=== PATIENT | male | born 1950 | race Caucasian/White ===

== ENCOUNTER 2020-11-04 08:00 | Outpatient (RCR) | payer SELFPAY ==
[2020-11-03 13:03] VITALS: BP 140/87; PULSE 118; RESP 16; TEMP 37.1
--- NOTE | 2020-11-03 14:43 | RAD_ITS ---
STUDY: X-RAY - LEFT FOOT CLINICAL: Male, 70 years old. INFECTION. Prior amputation. TECHNIQUE: 3 view(s) of the foot. COMPARISON: None. FINDINGS: Normal talus, calcaneus, and tarsal bones. Normal visualized subtalar, talonavicular, calcaneocuboid, tarsal and tarsometatarsal articulations. The patient is status post transmetatarsal amputation. Normal metatarsophalangeal joint of the great toe. Normal tibial and fibular sesamoid bones. Normal interphalangeal joint of the great toe. Normal phalanges of the great toe. Normal second through fifth metatarsophalangeal joints. Normal interphalangeal joints and phalanges of the lesser toes. Diffuse soft tissue swelling. Gas is seen within the medial soft tissues. Vascular calcification. RAD/Foot min 3 Views IMPRESSION: Status post transmetatarsal amputation. Overlying soft tissue swelling. Small amount of gas is seen within the soft tissues in keeping with infection. Vascular calcification. Electronically Signed: Adrian Rucker MD at 15:38 EDT , Service support ,
[2020-11-03 15:20] LABS: Absolute Neutrophil Count 6.1 X10^3/uL (2.0-7.7); Basophil# 0.06 X10^3/uL; Basophil% 0.6 % (0-1); Eosinophil# 0.18 X10^3/uL; Eosinophils% 1.9 % (0-5); Hematocrit 41.2 % (40-54); Hemoglobin 12.5 g/dL (13.0-16.5); Lymphocyte % 23.6 % (19-41); Mean Corp Hgb Conc 30.3 g/dL (32-36); Mean Corpuscular Hgb 25.9 pg (27.0-32.0); Mean Corpuscular Volume 85.5 fL (80-94); Mean Platelet Vol. 9.4 fl (6.2-12.0); Monocyte# 0.67 X10^3/uL; Monocyte% 7.2 % (0-10); NRBC Flagged by Analyzer 0 % (0-5); Neutrophil # 6.13 X10^3/uL (2.7-7.7); Neutrophil % 65.9 % (47-70); Platelet Count 611 K/mm3 (150-450); RBC Distribution Width CV 13.2 % (11.6-14.6); RBC Distribution Width SD 41.1 fl (35.1-43.9); Red Blood Count 4.82 M/mm3 (4.6-6.2); White Blood Count 9.3 K/mm3 (4.4-11.0)
[2020-11-03 15:41] LABS: Erythrocyte Sedimentation Rate 30 mm/hr (0-20)
[2020-11-03 16:00] LABS: ALB/GLOB Ratio 0.5 RATIO (0.9-2.4); AST(SGOT) 14 U/L (15-37); Alanine Aminotransfer ALT/SGPT 26 U/L (16-61); Albumin, Serum 2.9 g/dL (3.2-5.0); Alkaline Phosphatase 122 U/L (45-117); Anion Gap 6 (5-15); BUN 13 mg/dL (7-18); BUN/Creat Ratio 19.2 RATIO (10-20); Calcium,Total 9.4 mg/dL (8.5-10.1); Chloride 97 mmol/L (98-107); Creatinine, Serum 0.68 mg/dL (0.70-1.30); EST Glomerular Filtration Rate 123 mL/min (>60); Est Glom Filt Rate - Afr Amer 149 mL/min (>60); Globulin 5.6 g/dL (2.2-4.2); Glucose 174 mg/dL (74-106); Potassium 4.2 mmol/L (3.5-5.1); Protein, Total 8.5 g/dL (6.4-8.2); Sodium Level 133 mmol/L (136-145)
--- NOTE | 2020-11-03 16:04 | PCM.WC.HP ---
History of Present Illness Date of Service: 11/03/20 Chief Complaint: left foot recent surgery with prior infection and black tissue formation History of Wound: This 70 year old male was seen at wound care center today for left foot. He had gangrene of left great toe for a known duration of two weeks prior to seeing Dr. Bruce in [facility] [place]. 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 He then underwent transmetatarsal amputation on 10-18-20. He was started on IV clindamycin / ciprofloxacin at time of admission and later transitioned to ceftriaxone 2 g daily. Per chart review from [facility], strep constellatus was identified in deep wound culture. Outpatient infectious disease referral was recommended for 2 - 6 weeks antibiotics and he was d/c with PICC line. He was also referred to Dr. Aramis Avalos as PCP and infecious disease specialist Dr. Aletha Meyer. He is now residing at a detention facility, remains non weightbearing, and has dressings with dry gauze applied. He relates he stopped taking his medications for diabetes a couple of years ago and has not seen his primary care physician for years. His A1C was 10.9%. He denies prior vascular work up or known claudication. He has rest parasthesias. [facility] Home Medications Lactobacillus acidophilus 1 cap PO BID 11/03/20 [History Last Taken Unknown] acetaminophen [Tylenol] 650 mg PO Q4H PRN 11/03/20 [History Last Taken Unknown] docusate sodium 100 mg PO BID PRN 11/03/20 [History Last Taken Unknown] enoxaparin [Lovenox] 40 mg SUBCUT DAILY 11/03/20 [History Last Taken Unknown] famotidine [Pepcid] 20 mg PO DAILY 11/03/20 [History Last Taken Unknown] glipizide 5 mg PO DAILY 11/03/20 [History Last Taken Unknown] hydrocodone-acetaminophen [[place]] 1 tab PO Q4H PRN 11/03/20 [History Last Taken Unknown] insulin glargine [Lantus Solostar U-100 Insulin] 10 unit SUBCUT DAILY 11/03/20 [History Last Taken Unknown] insulin lispro [Humalog KwikPen Insulin] See Protocol SUBCUT ACHS 11/03/20 [History Last Taken Unknown] metformin 500 mg PO BID 11/03/20 [History Last Taken Unknown] Allergy/AdvReac Type Severity Reaction Status Date / Time naproxen [From Aleve] AdvReac Itching Verified 11/03/20 13:22 Penicillins [PCN] AdvReac FAINTING Verified 11/03/20 13:22 SPELLS Social History (Updated 11/03/20 @ 23:[address] Kristel Lewis, [facility]) Smoking Status: Former smoker quit date: 09/05/10 ROS Constitutional Constitutional: Denies chills Cardiovascular Cardiovascular: Reports cold extremities; Denies leg edema Gastrointestinal Gastrointestinal: Denies nausea or vomiting Musculoskeletal Musculoskeletal: Reports difficulty walking and numbness Neurologic Neurologic: Reports numbness Vital Signs Vital Signs Vital Signs: 11/03/20 13:03 Temperature 98.7 F Temperature Source Temporal Pulse Rate 118 H Respiratory Rate 16 Blood Pressure 140/87 H Blood Pressure Mean 104 Blood Pressure Source Monitor Oxygen Delivery Method Room Air Physical Exam Const alert and oriented x3 General Appearance: cooperative HEENT normocephalic Extremity Extremity Narrative: No calf tenderness Diminished pulses Muscle wasting noted left transmetatarsal amputation non viable central and medial flap well adhered. no erythema, streaking or purulence. pain to palpate stump is mild. compartments to surgical limb remain soft. no crepitus noted General Extremity: edema and no tenderness to palpation of joints or extremities; Negative for cyanosis Skin Skin Narrative: no purulence, no streaking, no odor, no infection. no hair to lower legs. General Skin Exam: Negative for erythema Neuro Neuro Narrative: lack of normal epicritic sensation via light touch is consistent with neuropathy status Psych cooperative and affect normal Assessment and Debridement #1- L TRANSMET INCISION P/O: Post-Debridement Measurements/Treatment - Nurse 1 - General Ulcer Assessment Start: 11/03/20 13:03 Freq: Status: Active Protocol: LON Activity Type Activity Date Activity User E-Sign Co-Sign Detail Recorded Client Recorded Date Recorded By Document 11/03/20 13:03 [facility] [id number] 11/03/20 13:19 [facility] 11/03/20 13:03 - Today's Visit Information Type of service Initial Visit Vital Signs Temperature (97.8 F-99.1 F) 98.7 F Temperature Source Temporal Pulse Rate (60-100 beats/min) 118 H Pulse Location Monitor Respiratory Rate (12-18 breaths/min) 16 Respiratory rate source Observation Oxygen Delivery Method Room Air Blood Pressure (90/60-120/80 mm Hg) 140/87 H Blood Pressure Mean (mm Hg) 104 Source Monitor Pain Scale: 0-10 Numeric Is Patient Pain Free? Yes Lower Extremity Assessment/ Foot Assessment/ Toe Nail Assessment Left -Lower Extremity Comment (If N/A Above LEFT TRANSMET ) -Posterior Tibial Doppler Multiphasic -Dorsalis Pedis Doppler Multiphasic -Extremity Color Pale -Hair Growth on Legs No -Hair Growth on Toes No -Temperature of Extremity Warm -Other Deformity No -Prior Foot Ulcer No -Charcot Joint No -Prior Amputation Yes Right -Posterior Tibial Palpable Yes -Posterior Tibial Doppler Multiphasic -Dorsalis Pedis Palpable Yes -Dorsalis Pedis Doppler Multiphasic -Extremity Color Pale -Hair Growth on Legs No -Hair Growth on Toes No -Temperature of Extremity Warm -Prior Amputation Yes -Thick Yes -Discolored Yes -Deformed No -Improper Length & Hygeine Yes Neuropathy Assessment Feet - Top Side and Bottom <Entered> (a) Communication Assessment Preferred language Czech Able to Read Yes Able to Write Yes Communication Tools None Right Hearing Abillity Normal Left Hearing Abillity Normal Visual Assistive Devices Glasses Teaching Assessment Preferences Verbal,Written, Audio/Visual, Demonstration Barriers to Learning None Readiness To Learn Excellent Willingness to Engage in Self Management High Activies Readiness to Engage in Self Management High Activities Anxiety Level Calm Cooperation Cooperative Perception Coherent Interest in Health Problem Asks Questions Education Importance Acknowledges Need Does Patient Smoke tobacco or other No substances Smoking Status Never smoker Is Patient Diabetic Yes Functional Assessment Recent Decline in Ability to Perform Ambulation, Bathing,Lower Body Dressing, Toileting, Transferring 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 Cultural/Religion Needs that may affect No Treatment Plan Teaching: Wound Center *Welcome to the Wound Center -Person Taught Patient,Family -Teaching Method Discussion -Response to teaching Verbalize understanding Welcome to the Wound Care Center Czech (a) 1 - - WC - Nurse 2 - General Ulcer CM Notes Start: 11/03/20 13:03 Freq: Status: Active Protocol: Activity Type Activity Date Activity User E-Sign Co-Sign Detail Recorded Client Recorded Date Recorded By Document 11/03/20 14:00 RAJAT [id number] 11/03/20 14:08 JF 11/03/20 14:00 Wound Center Nurse 2 #1- L TRANSMET INCISION P/O -Correct Patient No -Correct Side, Site, Position No -Correct Procedure No -Procedure Performed No -Wound/Ulcer Outcome Not Healed Lab / Micro Data Result Diagrams: 11/03/20 14:28 11/03/20 14:28 Labs: Prior labs from [facility]: 10/20/20- wbc 12.9, esr 93, cr 0.59, alb 2.4, crp > 12 10/16/20- serology neg for covid 19 10/16/20- pathology for left great toe with ganrenous tissue and acute osteomyelitis 10/16/20 - micro left great toe with strep constellatus moderate 10/16/20 - blood culture no growth 10/21/20 - wbc 11.1 10/28/20 - wbc 8.3 Laboratory Results - last 24 hr 11/03/20 11/03/20 14:28 14:28 WBC 9.3 RBC 4.82 Hgb 12.5 L Hct 41.2 MCV 85.5 MCH 25.9 L MCHC 30.3 L RDW Std Deviation 41.1 RDW Coeff of Elsy 13.2 Plt Count 611 H MPV 9.4 Immature Gran % (Auto) 0.800 Neut % (Auto) 65.9 Lymph % (Auto) 23.6 Fergus % (Auto) 7.2 Eos % (Auto) 1.9 Baso % (Auto) 0.6 Absolute Neuts (auto) 6.1 Absolute Lymphs (auto) 2.20 Nucleated RBC % 0 ESR 30 H Sodium 133 L Potassium 4.2 Chloride 97 L Carbon Dioxide 30.0 Anion Gap 6 BUN 13 Creatinine 0.68 L Est GFR (MDRD) Af Amer 149 Est GFR (MDRD) Non-Af 123 BUN/Creatinine Ratio 19.2 Glucose 174 H Calcium 9.4 Total Bilirubin 0.30 AST 14 L ALT 26 Alkaline Phosphatase 122 H C-React Prot Ext Range 36.20 H Total Protein 8.5 H Albumin 2.9 L Globulin 5.6 H Albumin/Globulin Ratio 0.5 L Radiology Impression Foot X-Ray 11/03/20 14:43 IMPRESSION: Status post transmetatarsal amputation. Overlying soft tissue swelling. Small amount of gas is seen within the soft tissues in keeping with infection. Vascular calcification. Electronically Signed: Adrian Rucker MD at 15:38 EDT , Service support , Assessment & Plan Assessment/Plan (1) Other specified peripheral vascular diseases: Status: Acute Code(s): I73.89 - Other specified peripheral vascular diseases (2) Cellulitis of left lower limb: Status: Acute Code(s): L03.116 - Cellulitis of left lower limb (3) Type 2 diabetes mellitus with diabetic polyneuropathy: Status: Acute Code(s): E11.42 - Type 2 diabetes mellitus with diabetic polyneuropathy Plan: I reviewed and discussed his case today. Debridement was performed today as noted in the clinical panel to all of the ulcer sites. The following work up and care recommendations were made: Dressing: Betadine wet-to-dry Wash: Soap and water Tissue growth optimization: Will be considered after demarcation with advanced wound healing product or wound vac Offload: Nonweightbearing Vascular: Noninvasive vascular studies ordered including pressure, TESSA, toe pressure Edema: Mild to moderate status. Venous Dopplers reflux evaluation ordered Infection: Prior strep constellatus signs of callus amputation noted. Revisional midfoot amputation without identified clearance fragment. He had 13 days of IV ceftriaxone ordered with anticipated potential up to 6 weeks. Outpatient referral to infectious disease physician Dr. Aletha Meyer per Story Chart review. He is scheduled in the outpatient setting in about one month. I recommend sooner follow up due to undefined plan in the interim. Pain: to avoid direct pressure Host factors: Uncontrolled diabetes and lack of medical follow-up in the past several years as noted and is affecting his overall health status. Follow-up with his primary care physician referral. Imaging: X-rays of left foot ordered today Diagnostic data: CBC, CMP, C-reactive protein, ESR ordered today. I have also reviewed with his data from [facility] as mentioned and noted previously. Lab trends will be followed while on antibiotics. I answered all the patient's questions. To return to the wound healing center in 1 week or call sooner if the patient has any questions or concerns. To call sooner if infection local signs return or systemic illness noted. Note: [employer] speech recognition welder apprentice arc software was used to create portions of this document. Sound-alike and misspelled words, as well as other welder apprentice arc errors may be contained in the documentation. -----2020: Elevated blood pressure noted; to follow-up with primary care physician. Reaction time and activity improvements to recommended for blood pressure potential.He is a current nontobacco user. He has fallen with injury this past year.Medications reviewed and reconciled.
[2020-11-03 16:14] LABS: Hemoglobin A1c 9.7 % (3.8-5.6)
--- NOTE | 2020-11-04 07:30 | VDLE_ITS ---
Reason For Study: Vascular disease RIGHT LEFT CFV is compressible, spontaneous, competent CFV is compressible, spontaneous, competent, and demonstrates pulsatile venous flow. and demonstrates pulsatile venous flow. FV is compressible, spontaneous, competent FV is compressible, spontaneous, competent and demonstrates pulsatile venous flow. and demonstrates pulsatile venous flow. POP V is compressible, spontaneous, competent POP V is compressible, spontaneous, competent and demonstrates pulsatile venous flow. and demonstrates pulsatile venous flow. T/P Trunk is compressible. T/P Trunk is compressible. PTV is compressible. PTV is compressible. RT PerV is compressible. LT PerV is compressible. SFJ is competent and measures 0.53 x 0.82 cm. SFJ is competent and measures 1.03 x 0.88 cm. GSV proximal thigh measures 0.20 x 0.22 cm. GSV proximal thigh measures 0.35 x 0.36 cm. GSV at knee measures 0.15 x 0.16 cm. GSV above knee is INCOMPETENT for greater GSV is competent throughout. than 0.5 seconds. SSV is partially compressible with bright GSV at knee measures 0.31 x 0.34 cm. intraluminal echoes consistent chronic SVT. GSV below knee is competent. Unable to assess for competency. SSV is partially compressible with bright Procedure intraluminal echoes consistent chronic SVT. This is a venous duplex using B-mode, color Unable to assess for competency. flow and spectral Doppler. Exam performed in department. A preliminary report was called and/or faxed to . VL/Venous Duplex US - Jose A Extrem Interpretation Summary Deep veins of the lower extremities are bilaterally patent and compressible seg mentally. There is no evidence of deep vein thrombosis on either side. Valvular competence appears in tact within the proximal deep venous systems bilaterally. The great saphenous veins appear bila terally patent and compressible segmentally. Sapheno-femoral junctions are bilaterally competent . The right great saphenous vein appears segmentally competent. The left great saphenous vein jeffrey ears incompetent above the knee. The left great saphenous vein appears competent below the knee. Chronic venous changes are noted in the small saphenous veins bilaterally, which are partially compressible and demonstrate bright intraluminal echogenicity. Competence could not be assessed in the small saphenous veins bilaterally. Pulsatile flow is noted in the deep venous system bilaterally, which may be indicative of elevated central venous pressure (i.e. congestive heart fa ilure, tricuspid valve insufficiency, etc.). Clinical correlation is advised. Ordering Physician: Kristel Lewis Referring Physician: Tano Guajardo Performed By: Yaima Young RVT
--- NOTE | 2020-11-04 07:30 | ART_ITS ---
Reason For Study: Vascular Disease Procedure A bilateral lower extremity continuous wave Doppler with analog waveform analysis,segmental pressures,and ankle brachial indexes without exercise. Left Segmental Pressures Left brachial= 115mmHg. Left posterior tibial artery = >254mmHg. Left dorsalis pedis artery = >254mmHg. The left dorsalis pedis waveforms are triphasic. The left posterior tibial artery waveforms are triphasic. Right Segmental Pressures Right posterior tibial artery = >254mmHg. Right dorsalis pedis artery = >254mmHg. Right digit = 129 mmHg. The right dorsalis pedis waveforms are triphasic. The right posterior tibial artery waveforms are triphasic. Indices The right ankle brachial index by the dorsalis pedis is NC. The right ankle brachial index by the posterior tibial artery is NC. The right digital-brachial index is 1.12. The left ankle brachial index by the dorsalis pedis is NC. The left ankle brachial index by the posterior tibial artery is NC. VL/Lower Ext Art Exam w/o Exercis Interpretation Summary Triphasic Doppler waveforms are noted at ankle level bilaterally. Pulse-volume recordings appear satisfactory at all levels bilaterally, though not obtained at digital level on the left due to the absence of toes. Resting ankle-brachial indices could not be obtained on either side due to the non- compressibility of the vasculature at ankle level bilaterally. The right digita l-brachial index is normal. The left digital-brachial index was not determined due to the absence o f toes. There is evidence of arterial calcification at ankle level bilaterally. There i s no evidence of significant arterial occlusive disease in the lower extremities bilaterally. Th e presence of arterial calcification may artifactually elevate arterial indices,and mask the presence of arterial occlusive disease. In that regard, clinical correlation is advised. Ordering Physician: Kristel Lewis Referring Physician: Tano De Leon Performed By: Yaima Young RVT and Student
== END 2020-11-05 23:59 ==
LOC: CVS 08:00
PROVIDERS: PCP Preventive Medicine Occupational Medicine; Referring Provider Podiatrist Foot & Ankle Surgery; Visit Provider Podiatrist
DX: E11.51 Type 2 diabetes mellitus with diabetic peripheral angiopathy without gangrene (principal); Z89.412 Acquired absence of left great toe; Z79.899 Other long term (current) drug therapy; Z79.4 Long term (current) use of insulin; Z87.891 Personal history of nicotine dependence; M86.172 Other acute osteomyelitis, left ankle and foot; E11.69 Type 2 diabetes mellitus with other specified complication; L03.116 Cellulitis of left lower limb; E11.42 Type 2 diabetes mellitus with diabetic polyneuropathy; R60.9 Edema, unspecified
CPT/HCPCS: 36415; 73630; 80053; 83036; 85025; 85652; 86140; 93923; 93970; 99213; G0463

== ENCOUNTER 2020-12-01 13:45 | Outpatient (RCR) | payer MEDICARE, SELFPAY ==
[2020-11-06 00:58] VITALS: BP 140/87; PULSE 118; RESP 16; TEMP 37.1
[2020-11-10 13:50] VITALS: BP 112/72; PULSE 109; RESP 16; TEMP 36.4
--- NOTE | 2020-11-10 16:30 | PN.PCM_ITS ---
History of Present Illness Date of Service: 11/10/20 Chief Complaint: left foot recent surgery with prior infection and black tissue formation History of Wound: This 70 year old male was seen at wound care center today for left foot. He had gangrene of left great toe for a known duration of two weeks prior to seeing Dr. Bruce in [facility]. 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 He then underwent transmetatarsal amputation on 10-18-20. He was started on IV clindamycin / ciprofloxacin at time of admission and later transitioned to ceftriaxone 2 g daily. Per chart review from [facility], strep constellatus was identified in deep wound culture. Outpatient infectious disease referral was recommended for 2 - 6 weeks antibiotics and he was d/c with PICC line. He was also referred to Dr. Aramis Avalos as PCP and infecious disease specialist Dr. Aletha Meyer. He is now residing at a nursing home facility, remains non weightbearing, and has dressings with dry gauze applied, and his IV antibiotics were also extended with ID phone consultation. He is with a family member today. He denies fever, chill, nausea, vomiting. She relates she is also scheduled to see Dr. Meier, vascular surgeon within the next 1-1/2 weeks. She has labs and x-rays performed last week and would like to review the results. 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 Debridement was performed today as noted in the clinical panel to all of the ulcer sites. The following work up and care recommendations were made: Dressing: [id number] Wash: Soap and water Tissue growth optimization: Will be considered after demarcation with advanced wound healing product?or?wound vac Offload: Nonweightbearing Vascular: Noninvasive vascular studies ordered including pressure, TESSA, toe pressure. This was completed with triphasic waveforms noted at the ankle level. There is tissue loss, necrosis and eschar formation and it is noted that all of the vessels are calcified with a pressure of over 250 mmHg. I recommend a vascular surgery referral in a timely manner and he is scheduled to go to [place] within the next week and a half with Dr. Meier. Edema: Mild to moderate status.? Venous Dopplers reflux evaluation ordered. The results were reviewed including venous insufficiency of the left greater saphenous vein above the level of the knee. This is consistent with venous insufficiency. Infection: Prior strep constellatus signs of callus amputation noted.? Revisional midfoot amputation without identified clearance fragment. He had 13 days of IV ceftriaxone ordered with anticipated potential up to 6 weeks.? Outpatient referral to infectious disease physician Dr. Aletha Meyer per [place] Chart review. He is scheduled in the outpatient setting in about one month.? I recommend sooner follow up due to undefined plan in the interim. This was performed with a phone consultation in which his IV antibiotics have been continued until he can be seen in her office setting. The patient reports that he canceled his office follow-up visit and he was advised to be scheduled soon as possible. Pain: to avoid direct pressure Host factors: Uncontrolled diabetes and lack of medical follow-up in the past several years as noted and is affecting his overall health status.? Follow-up with his primary care physician referral. Imaging: X-rays of left foot ordered and these are reviewed with transmetatarsal amputation. No acute osseous destruction, fracture, dislocation, foreign body. There is air collection noted and this is consistent with the medial flap site. Some sutures were removed today and eschar was debrided with apparent hematoma formation. Diagnostic data: CBC, CMP, C-reactive protein, ESR ordered last week and this was restarted today he had a white blood cell count of 9.3, ESR 30, C-reactive protein 36.2, hemoglobin A1c 9.7%. I have also reviewed with his data from [facility] as mentioned and noted previously. ? Lab trends will be followed while on antibiotics. I answered all the patient's questions.? To return to the wound healing center in 1 week or call sooner if the patient has any questions or concerns.? To call sooner if infection local signs return or systemic illness noted. Note: [employer] speech recognition signal apprentice software was used to create portions of this document. Sound-alike and misspelled words, as well as other signal apprentice errors may be contained in the documentation. -----2020 [facility]: His blood pressure today is normal; 112/72. His medications were reviewed and reconciled from his nursing home facility. The medical decision making level is moderate based on data including at least three of the following: review of prior external notes, review of a test, ordering a test, assessment requiring an independent historian. The medical decision making level iss moderate based on data including the discussion of management or test interpretation with another qualified health skin care consultant or appropriate source. The medical decision making level is moderate. There is noted moderate risk of morbidity after considering this treatment plan and diagnostic data. Considerations were given to prescription management, decisions regarding surgical options, or social determinants of health. Physical Exam Const alert and oriented x3 General Appearance: cooperative HEENT normocephalic Extremity Extremity Narrative: No calf tenderness Diminished pulses Muscle wasting noted Compartments remain soft to palpate Left transmetatarsal amputation with necrosing incision. Prior area on x-ray corresponds with a boggy flap. Debridement of the eschar no purulence was noted. Partially dried hematogenous drainage consisting with a hematoma was noted General Extremity: edema and no tenderness to palpation of joints or extremities; Negative for cyanosis Skin Skin Narrative: no purulence, no streaking, no odor, no infection. Dysvascular devitalized stump with sutures still intact from surgery General Skin Exam: Negative for erythema Neuro Neuro Narrative: lack of normal epicritic sensation via light touch is consistent with neuropathy status Psych cooperative and affect normal Debridement Note Debridement Note Post-Debridement Measurements and Additional Note: pre debridement 0.1 x 0.1 x unknown depth with eschar / recent surgery left transmetatarsal amputation site (tissue removed/ excised with debridement includes devitalized subcutaneous, biofilm, slough, eschar) Post-Debridement Measurements/Treatment WC - Nurse 2 - General Ulcer CM Notes Start: 11/10/20 13:50 Freq: Status: Active Protocol: Activity Type Activity Date Activity User E-Sign Co-Sign Detail Recorded Client Recorded Date Recorded By Document 11/10/20 14:48 RAJAT [id number] 11/10/20 15:01 RAJAT 11/10/20 14:48 Wound Center Nurse 2 #1- L TRANSMET INCISION P/O -Time 14:49 -Correct Patient Yes -Correct Side, Site, Position Yes -Correct Procedure Yes -Procedure Performed Yes -Type of Procedure Debridement -Clinical Debridement Subcutaneous -Tissue Removed Subcutaneous -Post Debridement (cm) - Length 2.4 -Post Debridement (cm) - Width 3.0 -Post Debridement (cm) - Depth 2.0 -Total Square (Post) (cm) 7.20 -Area of Debridement (cm) - Length 2.4 -Area of Debridement (cm) - Width 3.0 -Total Square (Area) (cm) 7.20 -Tunneling No -Undermining/Tunneling No -Circular Undermining No -Wound/Ulcer Outcome Not Healed -Ulcer Cleansing Rinsed/ Irrigated with Saline -Foul Odor after Cleansing No -Bioengineered Tissue No -Bleeding Controlled with Pressure -Offloading Yes -Type of Offloading Surgical Shoe -Treatment Response Procedure Tolerated Well -Debridement - Open, 1st 20sq cm No -Debridement - Subq, 1st 20sq cm Yes WC - Nurse 3 - General Ulcer D/C NN Start: 11/10/20 13:50 Freq: Status: Active Protocol: Activity Type Activity Date Activity User E-Sign Co-Sign Detail Recorded Client Recorded Date Recorded By Document 11/10/20 15:05 NEMESIO [id number] 11/10/20 15:05 NEMESIO 11/10/20 15:05 Wound Care Nurse 3 -Ulcer Cleansing Rinsed/ Irrigated with Saline -Primary Dressing Covered/Secured with Dry Gauze,Dry Gauze & Roll Gauze,Secured with Tape Pain Scale: 0-10 Numeric Is Patient Pain Free? Yes WC - Visit Discharge Discharge Condition Stable Ambulatory Status Wheelchair Accompanied by son Wound debrided: left transmetatarsal amputation. Wound Grade/Stage: 1 Type of Debridement: Excisional debridement Anesthesia Used: 4% Lidocaine Solution Depth: in the subcutaneous layer Percentage of wound debrided: 100 Instrument Used: #15 blade Severity: Fat Layer Exposed Amount of bleeding with debridement: Mild Bleeding Controlled with: Pressure Patient tolerated procedure: Patient tolerated procedure well
[2020-11-17 14:35] VITALS: BP 149/84; PULSE 113; TEMP 36.2
--- NOTE | 2020-11-17 17:03 | PCM.WC.PN ---
History of Present Illness Date of Service: 11/17/20 Chief Complaint: left foot recent surgery with prior infection and black tissue formation History of Wound: This 70 year old male was seen at wound care center today for left foot. He had gangrene of left great toe for a known duration of two weeks prior to seeing Dr. Bruce in [facility]. 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 He then underwent transmetatarsal amputation on 10-18-20. He was started on IV clindamycin / ciprofloxacin at time of admission and later transitioned to ceftriaxone 2 g daily. Per chart review from [facility], strep constellatus was identified in deep wound culture. Outpatient infectious disease referral was recommended for 2 - 6 weeks antibiotics and he was d/c with PICC line. He was also referred to Dr. Aramis Avalos as PCP and infecious disease specialist Dr. Aletha Meyer; scheduled to see later this week. He is now residing at a nursing home facility, remains non weightbearing, and has dressings with dry gauze applied. He is with a family member today (sister who helps with the exam). He denies fever, chill, nausea, vomiting. He had a consultation with Dr. Meier earlier today and an intervention surgery is planned for potentially next or Sunday to improve foot healing and limb perfusion. 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 Debridement was not performed today. The following work up and care recommendations were made: Dressing: wet-to- dry dakin packed to amputation stump flap void area left foot Wash: Soap and water. To avoid soaking. Tissue growth optimization: Will be considered after demarcation with advanced wound healing product?or?wound vac Offload: Nonweightbearing Vascular: Noninvasive vascular studies ordered including pressure, TESSA, toe pressure. This was completed with triphasic waveforms noted at the ankle level. There is tissue loss, necrosis and eschar formation and it is noted that all of the vessels are calcified with a pressure of over 250 mmHg. I recommend a vascular surgery referral in a timely manner and he was seen by Dr. Meier morning. He will next get scheduled for vascular surgery intervention to improve limb perfusion and healing potential. Edema: Mild to moderate status.? Venous Dopplers reflux evaluation ordered. The results were reviewed including venous insufficiency of the left greater saphenous vein above the level of the knee. This is consistent with venous insufficiency. Infection: Prior strep constellatus signs of callus amputation noted.? Revisional midfoot amputation without identified clearance fragment. He had 13 days of IV ceftriaxone ordered with anticipated potential up to 6 weeks.? Outpatient referral to infectious disease physician Dr. Aletha Meyer per [place] Chart review. He is scheduled in the outpatient setting within the next week. Pain: to avoid direct pressure Host factors: Uncontrolled diabetes and lack of medical follow-up in the past several years as noted and is affecting his overall health status.? Follow-up with his primary care physician referral. Imaging: X-rays of left foot ordered and these are reviewed with transmetatarsal amputation. No acute osseous destruction, fracture, dislocation, foreign body. There is air collection noted and this is consistent with the medial flap site. Some sutures were removed today and eschar was debrided with apparent hematoma formation. Diagnostic data: CBC, CMP, C-reactive protein, ESR ordered last week and this was restarted today he had a white blood cell count of 9.3, ESR 30, C-reactive protein 36.2, hemoglobin A1c 9.7%. I have also reviewed with his data from [facility] as mentioned and noted previously. ? Lab trends will be followed while on antibiotics. I answered all the patient's questions.? To return to the wound healing center in 1 week or call sooner if the patient has any questions or concerns.? To call sooner if infection local signs return or systemic illness noted. Note: [employer] speech recognition airplane captain software was used to create portions of this document. Sound-alike and misspelled words, as well as other airplane captain errors may be contained in the documentation. -----2020 [facility]: His blood pressure today is normal; 149/84. This is elevated and he was advised to follow-up with primary care physician for diet, activity, and medical recommendations to optimize blood pressure healing potential. His medications were reviewed and reconciled from his nursing home facility. The medical decision making level is limited based on data including the review of prior external notes, review of a prior test, or ordering a test. The medical decision making level is limited based on data including an assessment requiring an independent historian. The problems addressed require a low medical decision making level which includes two or more problems, a stable chronic illness, or an acute illness or injury. Physical Exam Const alert and oriented x3 General Appearance: cooperative HEENT normocephalic Extremity Extremity Narrative: No calf tenderness Diminished pulses Muscle wasting noted Compartments remain soft to palpate Left transmetatarsal amputation with necrosing incision. Prior area on x-ray corresponds with a boggy flap. Debridement of the eschar no purulence was noted. Decreased serosanguineous drainage General Extremity: edema and no tenderness to palpation of joints or extremities; Negative for cyanosis Skin Skin Narrative: no purulence, no streaking, no odor, no infection. Dysvascular devitalized stump with sutures still intact from surgery General Skin Exam: Negative for erythema Neuro Neuro Narrative: lack of normal epicritic sensation via light touch is consistent with neuropathy status Psych cooperative and affect normal Debridement Note Debridement Note Post-Debridement Measurements and Additional Note: Post-Debridement Measurements/Treatment - Nurse 1 - General Ulcer Assessment Start: 11/10/20 13:50 Freq: Status: Active Protocol: ABIODUN.TEA Activity Type Activity Date Activity User E-Sign Co-Sign Detail Recorded Client Recorded Date Recorded By Document 11/10/20 13:50 [facility] [id number] 11/10/20 14:00 [facility] Document 11/17/20 14:35 NEMESIO [id number] 11/17/20 14:36 NEMESIO 11/10/20 11/17/20 13:50 14:35 - Today's Visit Information Type of service Follow-up Visit Follow-up Visit (Physician/SECURITY SYSTEMS SPECIALIST (Physician/SECURITY SYSTEMS SPECIALIST ) ) Arrival Mode Wheelchair Wheelchair Transfer Assistance Manual Transfer Assist (Other) 2 person Accompanied by brother Patient Identification Verified (Name & Yes Yes ) Patient Requires Transmission-Based No Precautions Finger Stick Blood Sugar(mg/dl) (if 138 77 indicated): Blood Sugar Stated by Stated by Patient Patient Vital Signs Temperature (97.8 F-99.1 F) 97.5 F L 97.2 F L Temperature Source Temporal Temporal Pulse Rate (60-100) 109 H 113 H Pulse Location Monitor Monitor Respiratory Rate (12-18) 16 Respiratory rate source Observation Oxygen Delivery Method Room Air Blood Pressure (90/60-120/80) 112/72 149/84 H Blood Pressure Mean (mm Hg) 85 105 Source Monitor Monitor Position Sitting Semi-Fowlers Blood Pressure Location Left Arm Right Arm History Since Last Visit- (Skip if this is Patient's initial visit) Have you changed medications since your No No last visit? Any new allergies or adverse reactions No No Had a fall/change in ADL's that may No No increase risk of falls Signs or symptoms of abuse and/or No No neglect since last visit Have you been in the hospital since your No No last visit? Has dressing in place as prescribed Yes Yes Has compression in place as prescribed N/A N/A Has offloadiing in place as prescribed N/A Yes Experienced any changes in pain level or No No management Left Footwear Surgical Shoe with pressure relief insole Right Footwear Regular Shoe Pain Scale: 0-10 Numeric Is Patient Pain Free? Yes - Nurse 1 - General Ulcer Measurement Start: 11/10/20 13:50 Freq: Status: Active Protocol: Activity Type Activity Date Activity User E-Sign Co-Sign Detail Recorded Client Recorded Date Recorded By Document 11/10/20 13:50 [facility] [id number] 11/10/20 14:00 [facility] Document 11/17/20 14:35 [id number] 11/17/20 14:36 KR 11/10/20 11/17/20 13:50 14:35 Wound Center Nurse 1 #1- L TRANSMET INCISION P/O -Combined with other wound No -Current Size (cm) - Length 0.1 2 -Current Size (cm) - Width 0.1 2.6 -Current Size (cm) - Depth 0.1 0.4 -Total Square Cm 0.01 5.2 -Exudate Amt Large Medium -Exudate Type Serosanguineous Serosanguineous -Wound Margin Distinct, Outline Attached -Granulation Amt Medium (34-66%) -Granulation Quality Red -Slough/Fibrin Yes -Necrosis Amt Large (67-100%) Medium (34-66%) -Necrotic Tissue Type Eschar Adherent Slough -Texture (Ema-wound Skin Appearance) Assessed Assessed, Scarring -Moisture (Ema-wound Skin Appearance) Assessed No Abnormality, Assessed -Color (Ema-wound Skin Appearance) Assessed No Abnormality, Assessed -Temperature (Ema-wound Skin No Abnormality No Abnormality Appearance) (Pt Warm) (Pt Warm) -Tenderness on Palpation (Ema-wound No No Skin Appearance) -Ulcer Cleansing soapy water Rinsed/ Irrigated with Saline -Foul Odor after Cleansing No No -Anesthetic Used 4% Lidocaine 5% Lidocaine Solution Gel - Nurse 2 - General Ulcer CM Notes Start: 11/10/20 13:50 Freq: Status: Active Protocol: Activity Type Activity Date Activity User E-Sign Co-Sign Detail Recorded Client Recorded Date Recorded By Document 11/10/20 14:48 [id number] 11/10/20 15:01 Document 11/17/20 15:06 [id number] 11/17/20 15:08 11/10/20 11/17/20 14:48 15:06 Wound Center Nurse 2 -Time 14:49 -Correct Patient Yes No -Correct Side, Site, Position Yes No -Correct Procedure Yes No -Procedure Performed Yes No -Type of Procedure Debridement -Clinical Debridement Subcutaneous -Tissue Removed Subcutaneous -Post Debridement (cm) - Length 2.4 -Post Debridement (cm) - Width 3.0 -Post Debridement (cm) - Depth 2.0 -Total Square (Post) (cm) 7.20 -Area of Debridement (cm) - Length 2.4 -Area of Debridement (cm) - Width 3.0 -Total Square (Area) (cm) 7.20 -Tunneling No -Undermining/Tunneling No -Circular Undermining No -Wound/Ulcer Outcome Not Healed Not Healed -Ulcer Cleansing Rinsed/ Irrigated with Saline -Foul Odor after Cleansing No -Bioengineered Tissue No -Bleeding Controlled with Pressure -Offloading Yes -Type of Offloading Surgical Shoe -Treatment Response Procedure Tolerated Well -Debridement - Open, 1st 20sq cm No -Debridement - Subq, 1st 20sq cm Yes Pain Scale: 0-10 Numeric Is Patient Pain Free? Yes - Nurse 3 - General Ulcer D/C NN Start: 11/10/20 13:50 Freq: Status: Active Protocol: Activity Type Activity Date Activity User E-Sign Co-Sign Detail Recorded Client Recorded Date Recorded By Document 11/10/20 15:05 [id number] 11/10/20 15:05 KR Document 11/17/20 15:19 [facility] [id number] 11/17/20 15:19 [facility] 11/10/20 11/17/20 15:05 15:19 Wound Care Nurse 3 #1- L TRANSMET INCISION P/O -Ulcer Cleansing Rinsed/ Irrigated with Saline -Primary Dressing Applied Other -Other Dressing moist to dry per kr licensed funeral director and embalmer -Primary Dressing Covered/Secured with Dry Gauze,Dry Dry Gauze & Gauze & Roll Roll Gauze, Gauze,Secured Secured with with Tape Tape Treatment Response Procedure Tolerated Well Pain Scale: 0-10 Numeric Is Patient Pain Free? Yes Yes - Visit Discharge Discharge Condition Stable Stable Ambulatory Status Wheelchair Wheelchair Accompanied by son
[2020-12-01 13:44] VITALS: BP 132/85; PULSE 116; RESP 16; TEMP 36.9
--- NOTE | 2020-12-01 16:06 | PN.PCM_ITS ---
History of Present Illness Date of Service: 12/01/20 Chief Complaint: left foot recent surgery with prior infection and black tissue formation History of Wound: This 70 year old male was seen at wound care center today for left foot. He had gangrene of left great toe for a known duration of two weeks prior to seeing Dr. Bruce in [facility]. 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 He then underwent transmetatarsal amputation on 10-18-20. He was started on IV clindamycin / ciprofloxacin at time of admission and later transitioned to ceftriaxone 2 g daily. This has now been completed. Per chart review from [facility], strep constellatus was identified in deep wound culture. Outpatient infectious disease referral was recommended for 2 - 6 weeks antibiotics and he was d/c with PICC line. He was also referred to Dr. Aramis Avalos as PCP and infectious disease specialist Dr. Aletha Meyer; scheduled to see tomorrow. He is now residing at a intermediate facility, remains non weightbearing, and has dressings with dakin wet to dry with cavity packing. He is scheduled for a limb perfusion procedure with Dr. Meier next Sunday. Progress of Wound: stable, necrosis noted Objective Data Objective Data Vital Signs: Vital Signs Temp Pulse Resp BP 98.5 F 116 H 16 132/85 H 12/01/20 13:44 12/01/20 13:44 12/01/20 13:44 12/01/20 13:44 Oxygen Delivery Method Room Air Physical Exam Const alert and oriented x3 General Appearance: cooperative HEENT normocephalic Extremity Extremity Narrative: No calf tenderness Diminished pulses Muscle wasting noted Compartments remain soft to palpate Left transmetatarsal amputation with necrosing incision. Prior area on x-ray corresponds with a boggy flap. Debridement of the eschar no purulence was noted and sutures removed today. Decreased serosanguineous drainage General Extremity: edema and no tenderness to palpation of joints or extre mities; Negative for cyanosis Skin Skin Narrative: no purulence, no streaking, no odor, no infection. Dysvascular devitalized stump with sutures still intact from surgery General Skin Exam: Negative for erythema Neuro Neuro Narrative: lack of normal epicritic sensation via light touch is consistent with neuropathy status Psych cooperative and affect normal Debridement Note Debridement Note Post-Debridement Measurements and Additional Note: Post-Debridement Measure ments/Treatment - Nurse 1 - General Ulcer Assessment Start: 11/10/20 13:50 Freq: Status: Active Protocol: LON Activity Type Activity Date Activity User E-Sign Co-Sign Detail Recorded Client Recorded Date Recorded By Document 11/10/20 13:50 BM [id number] 11/10/20 14:00 BMF Document 11/17/20 14:35 KR [id number] 11/17/20 14:36 KR Document 12/01/20 13:44 [facility] [id number] 12/01/20 13:55 BMF 11/10/20 11/17/20 12/01/20 13:50 14:35 13:44 - Today's Visit Information Type of service Follow-up Visit Follow-up Visit Follow-up Visit (Physician/STRIP POLISHER (Physician/STRIP POLISHER (Physician/STRIP POLISHER ) ) ) Arrival Mode Wheelchair Wheelchair Wheelchair Transfer Assistance Manual None Transfer Assist (Other) 2 person standby Accompanied by brother Patient Identification Verified (Name & Yes Yes Yes ) Patient Requires Transmission-Based No No Precautions Finger Stick Blood Sugar(mg/dl) (if [phone] indicated): Blood Sugar Stated by Stated by Stated by Patient Patient Patient Vital Signs Temperature (97.8 F-99.1 F) 97.5 F L 97.2 F L 98.5 F Temperature Source Temporal Temporal Temporal Pulse Rate (60-100) 109 H 113 H 116 H Pulse Location Monitor Monitor Monitor Respiratory Rate (12-18) 16 16 Respiratory rate source Observation Observation Oxygen Delivery Method Room Air Room Air Blood Pressure (90/60-120/80) 112/72 149/84 H 132/85 H Blood Pressure Mean (mm Hg) 85 105 100 Source Monitor Monitor Monitor Position Sitting Semi-Fowlers Sitting Blood Pressure Location Left Arm Right Arm Left Arm History Since Last Visit- (Skip if this is Patient's initial visit) Have you changed medications since your No No No last visit? Any new allergies or adverse reactions No No No Had a fall/change in ADL's that may No No No increase risk of falls Signs or symptoms of abuse and/or No No No neglect since last visit Have you been in the hospital since your No No No last visit? Has dressing in place as prescribed Yes Yes Yes Has compression in place as prescribed N/A N/A N/A Has offloadiing in place as prescribed N/A Yes Yes Experienced any changes in pain level or No No No management Left Footwear Surgical Shoe Surgical Shoe with pressure with pressure relief insole relief insole Right Footwear Regular Shoe Regular Shoe Pain Scale: 0-10 Numeric Is Patient Pain Free? Yes Yes WC - Nurse 1 - General Ulcer Measurement Start: 11/10/20 13:50 Freq: Status: Active Protocol: Activity Type Activity Date Activity User E-Sign Co-Sign Detail Recorded Client Recorded Date Recorded By Document 11/10/20 13:50 BM [id number] 11/10/20 14:00 BMF Document 11/17/20 14:35 KR [id number] 11/17/20 14:36 KR Document 12/01/20 13:44 [facility] [id number] 12/01/20 13:55 BM 11/10/20 11/17/20 12/01/20 13:50 14:35 13:44 Wound Center Nurse 1 #1- L TRANSMET INCISION P/O -Combined with other wound No No -Current Size (cm) - Length 0.1 2 2.8 -Current Size (cm) - Width 0.1 2.6 2.7 -Current Size (cm) - Depth 0.1 0.4 4.1 -Total Square Cm 0.01 5.2 7.56 -Photo Taken No -Epithelialization None Present -Tunneling Yes -Tunneling Position (O'clock) 9 -Tunneling Distance (cm) 3.6 -Undermining/Tunneling No -Circular Undermining No -Exudate Amt Large Medium Medium -Exudate Type Serosanguineous Serosanguineous Serosanguineous -Wound Margin Distinct, Distinct, Outline Outline Attached Attached -Granulation Amt Medium (34-66%) Medium (34-66%) -Granulation Quality Red Red -Slough/Fibrin Yes Yes -Necrosis Amt Large (67-100%) Medium (34-66%) Medium (34-66%) -Necrotic Tissue Type Eschar Adherent Slough Adherent Slough -Texture (Ema-wound Skin Appearance) Assessed Assessed, Assessed, Scarring Localized Edema ,Scarring -Moisture (Ema-wound Skin Appearance) Assessed No Abnormality, Assessed,Dry/ Assessed Scaly -Color (Ema-wound Skin Appearance) Assessed No Abnormality, Assessed, Assessed Erythema -Temperature (Ema-wound Skin No Abnormality No Abnormality No Abnormality Appearance) (Pt Warm) (Pt Warm) (Pt Warm) -Tenderness on Palpation (Ema-wound No No No Skin Appearance) -Ulcer Cleansing soapy water Rinsed/ soapy water Irrigated with Saline -Foul Odor after Cleansing No No No -Anesthetic Used 4% Lidocaine 5% Lidocaine 4% Lidocaine Solution Gel Solution WC - Nurse 2 - General Ulcer CM Notes Start: 11/10/20 13:50 Freq: Status: Active Protocol: Activity Type Activity Date Activity User E-Sign Co-Sign Detail Recorded Client Recorded Date Recorded By Document 11/10/20 14:48 [id number] 11/10/20 15:01 Document 11/17/20 15:06 JF [id number] 11/17/20 15:08 Document 12/01/20 14:47 PL [id number] 12/01/20 14:48 PL 11/10/20 11/17/20 12/01/20 14:48 15:06 14:47 Wound Center Nurse 2 #1- L TRANSMET INCISION P/O -Time 14:49 14:32 -Correct Patient Yes No Yes -Correct Side, Site, Position Yes No Yes -Correct Procedure Yes No Yes -Procedure Performed Yes No Yes -Type of Procedure Debridement Debridement -Clinical Debridement Subcutaneous Epidermis / Dermis -Tissue Removed Subcutaneous Epidermis, Dermis -Post Debridement (cm) - Length 2.4 2.8 -Post Debridement (cm) - Width 3.0 2.7 -Post Debridement (cm) - Depth 2.0 4.1 -Total Square (Post) (cm) 7.20 7.56 -Area of Debridement (cm) - Length 2.4 2.8 -Area of Debridement (cm) - Width 3.0 2.7 -Total Square (Area) (cm) 7.20 7.56 -Tunneling No No -Undermining/Tunneling No No -Circular Undermining No No -Wound/Ulcer Outcome Not Healed Not Healed Not Healed -Ulcer Cleansing Rinsed/ Rinsed/ Irrigated with Irrigated with Saline Saline -Foul Odor after Cleansing No No -Bioengineered Tissue No No -Bleeding Controlled with Pressure Pressure -Offloading Yes -Type of Offloading Surgical Shoe -Treatment Response Procedure Procedure Tolerated Well Tolerated Well -Debridement - Open, 1st 20sq cm No Yes -Debridement - Subq, 1st 20sq cm Yes Pain Scale: 0-10 Numeric Is Patient Pain Free? Yes Yes WC - Nurse 3 - General Ulcer D/C NN Start: 11/10/20 13:50 Freq: Status: Active Protocol: Activity Type Activity Date Activity User E-Sign Co-Sign Detail Recorded Client Recorded Date Recorded By Document 11/10/20 15:05 KR [id number] 11/10/20 15:05 KR Document 11/17/20 15:19 [facility] [id number] 11/17/20 15:19 [facility] Document 12/01/20 14:58 DL [id number] 12/01/20 14:59 DL 11/10/20 11/17/20 12/01/20 15:05 15:19 14:58 Wound Care Nurse 3 #1- L TRANSMET INCISION P/O -Ulcer Cleansing Rinsed/ Rinsed/ Irrigated with Irrigated with Saline Saline -Foul Odor after Cleansing No -Primary Dressing Applied Other -Other Dressing moist to dry moist gauze per kr brand ambassador promotional model today -Primary Dressing Covered/Secured with Dry Gauze,Dry Dry Gauze & Dry Gauze & Gauze & Roll Roll Gauze, Roll Gauze, Gauze,Secured Secured with Secured with with Tape Tape Tape Treatment Response Procedure Procedure Tolerated Well Tolerated Well Pain Scale: 0-10 Numeric Is Patient Pain Free? Yes Yes Yes - Visit Discharge Discharge Condition Stable Stable Stable Ambulatory Status Wheelchair Wheelchair Wheelchair Transportation [facility] Accompanied by son Facility Type Shelter Care Facility Notes: Pt to resume Dakins at [facility]. Orders Sent Yes Wound debrided: left foot transmetatarsal amputation stump site Wound Grade/Stage: 3 Type of Debridement: Selective debridement Anesthesia Used: 4% Lidocaine Solution Depth: in the subcutaneous layer Percentage of wound debrided: 100 Instrument Used: #15 blade Tissue Removed: fibrous, eschar, biofilm, slough Severity: Fat Layer Exposed Amount of bleeding with debridement: Mild Bleeding Controlled with: Pressure Patient tolerated procedure: Patient tolerated procedure well Assessment/Plan Assessment/Plan (1) Type 2 diabetes mellitus with diabetic polyneuropathy: CODE(S): E11.42 - Type 2 diabetes mellitus with diabetic polyneuropathy (2) Cellulitis of left lower limb: CODE(S): L03.116 - Cellulitis of left lower limb (3) Other specified peripheral vascular diseases: CODE(S): I73.89 - Other specified peripheral vascular diseases (4) Venous insufficiency (chronic) (peripheral): CODE(S): I87.2 - Venous insufficiency (chronic) (peripheral) (5) 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 Debridement was performed today in a selective manner and sutures were removed. The following work up and care recommendations were made: Dressing: wet-to- dry dakin packed to amputation stump flap void area left foot Wash: Soap and water. To avoid soaking. Tissue growth optimization: Will be considered after demarcation with advanced wound healing product?or?wound vac Offload: Nonweightbearing Vascular: Noninvasive vascular studies ordered including pressure, TESSA, toe pressure. This was completed with triphasic waveforms noted at the ankle level. There is tissue loss, necrosis and eschar formation and it is noted that all of the vessels are calcified with a pressure of over 250 mmHg. He will next get scheduled for vascular surgery intervention to improve limb perfusion and healing potential next Sunday12/07/20. Edema: Mild to moderate status.? Venous Dopplers reflux evaluation ordered. The results were reviewed including venous insufficiency of the left greater saphenous vein above the level of the knee. This is consistent with venous insufficiency. Infection: Prior strep constellatus signs of callus amputation noted.? Revisional midfoot amputation without identified clearance fragment.Outpatient referral to infectious disease physician Dr. Aletha Meyer per [facility] Chart review. He is scheduled in the outpatient setting tomorrow. PICC line will likely be d/c due to completion of antibiotic course. no local infecion is noted today. He completed a 6 wk course of ceftriaxone. Pain: to avoid direct pressure Host factors: Uncontrolled diabetes and lack of medical follow-up in the past se veral years as noted and is affecting his overall health status.? Follow-up with his primary care physician referral. Imaging: X-rays of left foot ordered and these are reviewed with transmetatarsal amputation. No acute osseous destruction, fracture, dislocation, foreign body. There is air collection noted and this is consistent with the medial flap site. Some sutures were removed today and eschar was debrided with apparent hematoma formation. Diagnostic data: reviewed prior white blood cell count of 9.3, ESR 30, C- reactive protein 36.2, hemoglobin A1c 9.7%. I have also reviewed with his data from [facility] as mentioned and noted previously. ? Lab trends will be followed while on antibiotics. I answered all the patient's questions.? To return to the wound healing center in 1 week or call sooner if the patient has any questions or concerns.? To call sooner if infection local signs return or systemic illness noted. He understands he is at high risk for further amputation and limb loss. Note: [employer] speech recognition field tech software was used to create portions of this document. Sound-alike and misspelled words, as well as other field tech errors may be contained in the documentation. The medical decision making level is limited based on data including the review of prior external notes, review of a prior test, or ordering a test. The medical decision making level is limited based on data including an assessment requiring an independent historian (intermediate facility). 20 minutes was spent on this encounter. This included face to face and non face to face care including preparing for the visit, reviewing the history, performing the exam, counseling and providing education to the patient, family, or caregiver, ordering medications/test/ procedures if indicated as documented, communicating with other healthcare providers, documenting information in the medical record, interpreting / sharing this information when indicated as documented, and care coordination.
== END 2020-12-06 23:59 | disposition home or self-care (01) ==
LOC: WC 13:45
PROVIDERS: PCP Preventive Medicine Occupational Medicine; Referring Provider Podiatrist Foot & Ankle Surgery; Visit Provider Podiatrist
DX: E11.69 Type 2 diabetes mellitus with other specified complication (principal); E11.52 Type 2 diabetes mellitus with diabetic peripheral angiopathy with gangrene; I87.2 Venous insufficiency (chronic) (peripheral); L97.523 Non-pressure chronic ulcer of other part of left foot with necrosis of muscle; E11.621 Type 2 diabetes mellitus with foot ulcer; M86.8X7 Other osteomyelitis, ankle and foot; Z89.432 Acquired absence of left foot; L03.116 Cellulitis of left lower limb
CPT/HCPCS: 11042; 97597; 99213; G0463

== ENCOUNTER 2020-12-07 07:31 | Day surgery (SDC) | payer MEDICARE, SELFPAY ==
[2020-12-02 08:39] VITALS: BMI 28.3
[2020-12-07 07:46] LABS: Hematocrit 43.9 % (40-54); Hemoglobin 13.3 g/dL (13.0-16.5); Mean Corp Hgb Conc 30.3 g/dL (32-36); Mean Corpuscular Volume 82.4 fL (80-94); Mean Platelet Vol. 9.4 fl (6.2-12.0); Platelet Count 370 K/mm3 (150-450); RBC Distribution Width CV 13.9 % (11.6-14.6); RBC Distribution Width SD 41.4 fl (35.1-43.9); Red Blood Count 5.33 M/mm3 (4.6-6.2); White Blood Count 6.6 K/mm3 (4.4-11.0)
[2020-12-07 08:02] LABS: Albumin, Serum 3.1 g/dL (3.2-5.0); BUN 8 mg/dL (7-18); BUN/Creat Ratio 12.3 RATIO (10-20); Calcium,Total 9.4 mg/dL (8.5-10.1); Chloride 100 mmol/L (98-107); Creatinine, Serum 0.65 mg/dL (0.70-1.30); EST Glomerular Filtration Rate 128 mL/min (>60); Est Glom Filt Rate - Afr Amer 155 mL/min (>60); Estimated Creatinine Clearance 65.55 ml/min; Glucose 176 mg/dL (74-106); Phosphorus 4.2 mg/dL (2.5-4.9); Potassium 4.1 mmol/L (3.5-5.1); Sodium Level 134 mmol/L (136-145)
--- NOTE | 2020-12-07 11:43 | OP.PCM_ITS ---
Problems Associated Problem List Diagnoses (1) Other specified peripheral vascular diseases: Report of Operation Date of Procedure: 12/07/20 Pre-Operative Diagnosis: PAD with nonhealing wound Post-Operative Diagnosis: The same Surgery/Procedure Performed:: 1. Ultrasound-guided access retrograde right common femoral artery. 2. Left lower extremity angiogram catheter placed into the anterior tibial and posterior tibial artery. 3. Balloon angioplasty the distal left posterior tibial artery into the ankle with a 2 x 80 balloon. 4. Balloon angioplasty entire anterior tibial artery into the dorsalis pedis with a 2 x 220 balloon. Surgeon: Tyrone Meier Type of Anesthesia: IV Sedation Description of Procedure: To the Director Of Content Marketing. Underwent appropriate timeout consent. Underwent sedation. Was prepped and draped in a sterile fashion. We did ultrasound-guided access retrograde right common femoral artery. We gave 5000 units of heparin. We got up and over the bifurcation and imaged from the left iliac artery. This showed the common femoral artery, the profunda, and the femoral artery widely patent. It appeared to have some sluggish flow noted. We then put in a quick cross catheter and imaged from there and it showed the popliteal artery into the tibials was patent. We imaged below the knee and it showed the anterior tibial artery occluded after its takeoff with some collateral flow filling the very distal segment. Peroneal artery was patent throughout. Posterior tibial was patent all the way to the ankle and then had a subtotal occlusion at the ankle right before the branches of the plantars. We brought in a long 5 Marshallese sheath. First got O quick cross and wire through the anterior tibial artery and switched to an 014 wire. We then ballooned through this with a 2 x 220 balloon with 2 different inflations each for over 2-1/2 minutes. Completion was improved with much better antegrade flow through this segment now. We then got the wire down through the posterior tibial and into the ankle and foot. We ballooned the right across the ankle joint with a 2 x 80 balloon for over 2-1/2 minutes. Completion here was also much improved. This was now the quick is flow going down the leg and into the foot. In all overall all 3 vessels now with flow into the foot. Still some mild to moderate narr owing throughout the anterior tibial artery. But overall all 3 vessels improved. We then removed out the sheath and put a Star close with good hemostasis. He was brought to recovery stable condition. Sedation: This 70-year-old gentleman underwent moderate sedation given by Dr. Tyrone Meier. He was monitored with EKG blood pressure and pulse ox for over the 30 minutes of the procedure. See the EMR for the complete record
== END 2020-12-07 15:50 | disposition home or self-care (01) ==
PROVIDERS: PCP Preventive Medicine Occupational Medicine; Referring Provider Surgery Vascular Surgery; Visit Provider Surgery Vascular Surgery
DX: I70.213 Atherosclerosis of native arteries of extremities with intermittent claudication, bilateral legs (principal); I77.1 Stricture of artery; E11.9 Type 2 diabetes mellitus without complications; Z79.4 Long term (current) use of insulin
CPT/HCPCS: 36245; 36415; 37228; 37232; 75710; 76937; 80069; 85027; 99152; 99153; Q9967; C1725; C1760; C1769; C1887; C1894

== ENCOUNTER 2021-04-01 10:11 | Outpatient (RCR) | payer MEDICARE, SELFPAY ==
[2021-03-18 12:57] LABS: Hemoglobin 12.9 g/dL (13.0-16.5); Mean Corp Hgb Conc 31.5 g/dL (32-36); Mean Corpuscular Hgb 25.2 pg (27.0-32.0); Mean Corpuscular Volume 80.1 fL (80-94); Mean Platelet Vol. 10.5 fl (6.2-12.0); Platelet Count 321 K/mm3 (150-450); RBC Distribution Width CV 15.6 % (11.6-14.6); RBC Distribution Width SD 44.8 fl (35.1-43.9); Red Blood Count 5.12 M/mm3 (4.6-6.2); White Blood Count 8.5 K/mm3 (4.4-11.0)
[2021-03-18 13:05] LABS: Erythrocyte Sedimentation Rate 50 mm/hr (0-20)
[2021-03-18 13:09] LABS: ALB/GLOB Ratio 0.6 RATIO (0.9-2.4); AST(SGOT) 14 U/L (15-37); Alanine Aminotransfer ALT/SGPT 16 U/L (16-61); Albumin, Serum 2.7 g/dL (3.2-5.0); Alkaline Phosphatase 97 U/L (45-117); Anion Gap 4 (5-15); BUN 11 mg/dL (7-18); BUN/Creat Ratio 14.5 RATIO (10-20); Calcium,Total 8.8 mg/dL (8.5-10.1); Chloride 103 mmol/L (98-107); Creatinine, Serum 0.76 mg/dL (0.70-1.30); EST Glomerular Filtration Rate 108 mL/min (>60); Est Glom Filt Rate - Afr Amer 130 mL/min (>60); Globulin 4.2 g/dL (2.2-4.2); Glucose 160 mg/dL (74-106); Potassium 3.8 mmol/L (3.5-5.1); Protein, Total 6.9 g/dL (6.4-8.2); Sodium Level 135 mmol/L (136-145)
[2021-04-01 10:29] LABS: Hematocrit 46.9 % (40-54); Hemoglobin 14.7 g/dL (13.0-16.5); Mean Corp Hgb Conc 31.3 g/dL (32-36); Mean Corpuscular Hgb 25.2 pg (27.0-32.0); Mean Corpuscular Volume 80.3 fL (80-94); Mean Platelet Vol. 10.3 fl (6.2-12.0); Platelet Count 302 K/mm3 (150-450); RBC Distribution Width CV 15.9 % (11.6-14.6); RBC Distribution Width SD 45.3 fl (35.1-43.9); Red Blood Count 5.84 M/mm3 (4.6-6.2); White Blood Count 5.9 K/mm3 (4.4-11.0)
[2021-04-01 10:33] LABS: Erythrocyte Sedimentation Rate 12 mm/hr (0-20)
[2021-04-01 10:42] LABS: ALB/GLOB Ratio 0.9 RATIO (0.9-2.4); AST(SGOT) 11 U/L (15-37); Alanine Aminotransfer ALT/SGPT 15 U/L (16-61); Albumin, Serum 3.5 g/dL (3.2-5.0); Alkaline Phosphatase 123 U/L (45-117); Anion Gap 5 (5-15); BUN 12 mg/dL (7-18); CRP 7.29 mg/L (0.0-3.0); Calcium,Total 9.4 mg/dL (8.5-10.1); Chloride 100 mmol/L (98-107); EST Glomerular Filtration Rate 101 mL/min (>60); Est Glom Filt Rate - Afr Amer 122 mL/min (>60); Globulin 4.1 g/dL (2.2-4.2); Glucose 176 mg/dL (74-106); Potassium 4.1 mmol/L (3.5-5.1); Protein, Total 7.6 g/dL (6.4-8.2); Sodium Level 134 mmol/L (136-145)
== END 2021-04-01 18:00 | disposition home or self-care (01) ==
LOC: HHLAB 10:11
PROVIDERS: PCP Preventive Medicine Occupational Medicine
DX: E11.621 Type 2 diabetes mellitus with foot ulcer (principal); L97.523 Non-pressure chronic ulcer of other part of left foot with necrosis of muscle
CPT/HCPCS: 80053; 85027; 85652; 86140

== ENCOUNTER 2021-04-29 14:48 | Outpatient (RCR) | payer MEDICARE, SELFPAY ==
[2021-04-15 18:04] LABS: Hematocrit 40.8 % (40-54); Hemoglobin 12.9 g/dL (13.0-16.5); Mean Corp Hgb Conc 31.6 g/dL (32-36); Mean Corpuscular Hgb 25.7 pg (27.0-32.0); Mean Corpuscular Volume 81.3 fL (80-94); Mean Platelet Vol. 11.1 fl (6.2-12.0); Platelet Count 247 K/mm3 (150-450); RBC Distribution Width CV 15.9 % (11.6-14.6); RBC Distribution Width SD 47.2 fl (35.1-43.9); Red Blood Count 5.02 M/mm3 (4.6-6.2); White Blood Count 5.7 K/mm3 (4.4-11.0)
[2021-04-15 18:18] LABS: Erythrocyte Sedimentation Rate 39 mm/hr (0-20)
[2021-04-15 18:38] LABS: ALB/GLOB Ratio 0.8 RATIO (0.9-2.4); AST(SGOT) 12 U/L (15-37); Alanine Aminotransfer ALT/SGPT 13 U/L (16-61); Albumin, Serum 3.1 g/dL (3.2-5.0); Alkaline Phosphatase 98 U/L (45-117); Anion Gap 7 (5-15); BUN 13 mg/dL (7-18); BUN/Creat Ratio 16.6 RATIO (10-20); CRP 7.01 mg/L (0.0-3.0); Chloride 104 mmol/L (98-107); Creatinine, Serum 0.78 mg/dL (0.70-1.30); EST Glomerular Filtration Rate 104 mL/min (>60); Est Glom Filt Rate - Afr Amer 125 mL/min (>60); Glucose 51 mg/dL (74-106); Potassium 3.7 mmol/L (3.5-5.1); Protein, Total 7.1 g/dL (6.4-8.2); Sodium Level 139 mmol/L (136-145)
[2021-04-29 15:16] LABS: Hematocrit 44.3 % (40-54); Hemoglobin 13.8 g/dL (13.0-16.5); Mean Corp Hgb Conc 31.2 g/dL (32-36); Mean Corpuscular Volume 83.4 fL (80-94); Mean Platelet Vol. 11.1 fl (6.2-12.0); Platelet Count 294 K/mm3 (150-450); RBC Distribution Width CV 15.7 % (11.6-14.6); RBC Distribution Width SD 48.2 fl (35.1-43.9); Red Blood Count 5.31 M/mm3 (4.6-6.2); White Blood Count 7.2 K/mm3 (4.4-11.0)
[2021-04-29 15:23] LABS: Erythrocyte Sedimentation Rate 13 mm/hr (0-20)
[2021-04-29 15:25] LABS: ALB/GLOB Ratio 0.8 RATIO (0.9-2.4); AST(SGOT) 11 U/L (15-37); Alanine Aminotransfer ALT/SGPT 13 U/L (16-61); Albumin, Serum 3.2 g/dL (3.2-5.0); Alkaline Phosphatase 110 U/L (45-117); Anion Gap 6 (5-15); BUN 15 mg/dL (7-18); BUN/Creat Ratio 14.9 RATIO (10-20); CRP 8.09 mg/L (0.0-3.0); Calcium,Total 9.3 mg/dL (8.5-10.1); Chloride 103 mmol/L (98-107); Creatinine, Serum 1.01 mg/dL (0.70-1.30); EST Glomerular Filtration Rate 77 mL/min (>60); Est Glom Filt Rate - Afr Amer 93 mL/min (>60); Globulin 4.1 g/dL (2.2-4.2); Glucose 99 mg/dL (74-106); Potassium 5.2 mmol/L (3.5-5.1); Protein, Total 7.3 g/dL (6.4-8.2); Sodium Level 137 mmol/L (136-145)
== END 2021-05-08 02:37 | disposition home or self-care (01) ==
LOC: HHLAB 14:48
PROVIDERS: PCP Preventive Medicine Occupational Medicine; Referring Provider Preventive Medicine Occupational Medicine; Visit Provider Preventive Medicine Occupational Medicine
DX: E11.621 Type 2 diabetes mellitus with foot ulcer (principal); L97.423 Non-pressure chronic ulcer of left heel and midfoot with necrosis of muscle; E11.51 Type 2 diabetes mellitus with diabetic peripheral angiopathy without gangrene
CPT/HCPCS: 80053; 85027; 85652; 86140

== ENCOUNTER 2021-05-13 15:50 | Outpatient (RCR) | payer MEDICARE, SELFPAY ==
[2021-05-13 17:36] LABS: Hematocrit 43.2 % (40-54); Hemoglobin 13.5 g/dL (13.0-16.5); Mean Corp Hgb Conc 31.3 g/dL (32-36); Mean Corpuscular Hgb 26.1 pg (27.0-32.0); Mean Corpuscular Volume 83.4 fL (80-94); Mean Platelet Vol. 11.4 fl (6.2-12.0); Platelet Count 237 K/mm3 (150-450); RBC Distribution Width CV 16.1 % (11.6-14.6); RBC Distribution Width SD 49.3 fl (35.1-43.9); Red Blood Count 5.18 M/mm3 (4.6-6.2); White Blood Count 5.1 K/mm3 (4.4-11.0)
[2021-05-13 17:39] LABS: ALB/GLOB Ratio 0.7 RATIO (0.9-2.4); AST(SGOT) 15 U/L (15-37); Alanine Aminotransfer ALT/SGPT 18 U/L (16-61); Albumin, Serum 2.9 g/dL (3.2-5.0); Alkaline Phosphatase 95 U/L (45-117); Anion Gap 6 (5-15); BUN 11 mg/dL (7-18); BUN/Creat Ratio 13.4 RATIO (10-20); CRP 4.27 mg/L (0.0-3.0); Chloride 103 mmol/L (98-107); Creatinine, Serum 0.82 mg/dL (0.70-1.30); EST Glomerular Filtration Rate 98 mL/min (>60); Est Glom Filt Rate - Afr Amer 119 mL/min (>60); Globulin 3.9 g/dL (2.2-4.2); Glucose 133 mg/dL (74-106); Potassium 4.2 mmol/L (3.5-5.1); Protein, Total 6.8 g/dL (6.4-8.2); Sodium Level 136 mmol/L (136-145)
[2021-05-13 18:31] LABS: Erythrocyte Sedimentation Rate 15 mm/hr (0-20)
== END 2021-06-07 23:59 ==
LOC: HHLAB 15:50
PROVIDERS: PCP Preventive Medicine Occupational Medicine; Referring Provider Preventive Medicine Occupational Medicine; Visit Provider Preventive Medicine Occupational Medicine
DX: E11.621 Type 2 diabetes mellitus with foot ulcer (principal); L97.423 Non-pressure chronic ulcer of left heel and midfoot with necrosis of muscle; E11.51 Type 2 diabetes mellitus with diabetic peripheral angiopathy without gangrene
CPT/HCPCS: 80053; 85027; 85652; 86140

== ENCOUNTER → 2022-01-05 | Outpatient (CLI) | payer MEDICARE, SELFPAY ==
--- NOTE | 2022-01-05 09:47 | ART_ITS ---
Reason For Study: aftercare, atherosclerosis with claudication Procedure A bilateral lower extremity continuous wave Doppler with analog waveform analysis and ankle brachial indexes. Left Segmental Pressures Left brachial= 128mmHg. DIRECTOR FUNDS DEVELOPMENT and DPA are noncompressible. The left dorsalis pedis waveforms are biphasic. The left posterior tibial artery waveforms are biphasic. Right Segmental Pressures Right brachial= 133mmHg. Right posterior tibial artery = 189mmHg. DPA is noncompressible. The right dorsalis pedis waveforms are triphasic. The right posterior tibial artery waveforms are triphasic. Indices The right ankle brachial index by the posterior tibial artery is 1.42. DPA is noncompressible. DIRECTOR [employer] DEVELOPMENT and DPA are noncompressible. VL/Ankle Brachial Index Interpretation Summary Right lower extremity triphasic flow and an TESSA 1.42. This may be falsely eleva heide secondary to medial calcinosis. Left lower extremity noncompressible with biphasic flow and normal waveform. Ordering Physician: Tyrone Meier Performed By: Marc Hogan, RVT
--- NOTE | 2022-01-05 09:49 | ADUL_ITS ---
Reason For Study: Aftercare, Stricture of artery Left Velocities Ext Iliac Artery, dist = 76.9 cm./sec. Common Femoral Artery, mid = 70.8 cm./sec. Supf. Femoral Artery, prox = 67.1 cm./sec. Supf. Femoral Artery, mid = 78.1 cm./sec. Supf. Femoral Artery, dist = 85.5 cm./sec. Profunda Femoral Artery = 48.6 cm./sec. Popliteal Artery, mid = 54.8 cm./sec. Post. Tibial Artery, prox = 83.0 cm./sec. Post Tibial Artery, mid = 74.4 cm./sec. Post Tibial Artery, dist. = 101.5 cm./sec. Peroneal Artery, prox = 70.5 cm./sec. Peroneal Artery, mid = 101.5 cm./sec. Peroneal Artery,dist. = 141.4 cm./sec. Ant.Tibial Artery, prox = 19.3 cm./sec. Ant Tibial Artery, mid = 51.2 cm./sec. Ant. Tibial Artery, distal = 31.4 cm./sec. Procedure The exam was diagnostic. Exam performed in department. /US Art Duplex Unilat Lower Ext Interpretation Summary Left lower extremity with no evidence of significant occlusive disease and no s tenosis visualized. Ordering Physician: Tyrone Meier Performed By: Marc Hogan RVT
== END | disposition home or self-care (01) ==
LOC: CVS 09:43
PROVIDERS: PCP Preventive Medicine Occupational Medicine; Referring Provider Surgery Vascular Surgery; Visit Provider Surgery Vascular Surgery
DX: I70.213 Atherosclerosis of native arteries of extremities with intermittent claudication, bilateral legs (principal); I77.1 Stricture of artery
CPT/HCPCS: 93922; 93926